=== PATIENT | male | born 1950 | race Caucasian/White ===

== ENCOUNTER 2016-10-25 13:19 | Emergency (ER) | payer OTHER ==
[~2016-10-25] VITALS: Ht 167.6 cm; Wt 77.5 kg
[2016-10-25 13:24] VITALS: Ht 167.6 cm; Wt 77.5 kg
--- NOTE | 2016-10-25 14:19 | ERD ---
ER Documentation Chief Complaint Date/Time DATE: 10/25/16 TIME: 14:18 Chief Complaint COUGH , SORETHROAT X3 DAYS , FEVER HPI This is a 66-year-old male presents emergency department today complaining of cough, fever, sore throat and chills for the past 5 days. States he thinks the fevers are intermittent. States he is taking Tylenol. Denies any vomiting or diarrhea. ROS All systems reviewed and are negative except as per history of present illness. Medications Home Meds Active Scripts Electrolyte,Oral (Pedialyte) 1,000 Ml Solution, 100 ML PO Q6 Y for FEVER, #1000 ML Prov:JOSE MEDRANO PA-C 10/25/16 Acetaminophen* (Tylophen*) 500 Mg Capsule, 1 CAP PO Q6H Y for PAIN AND OR ELEVATED TEMP, #30 CAP Prov:JOSE MEDRANO PA-C 10/25/16 Ibuprofen* (Motrin*) 600 Mg Tab, 600 MG PO Q6, #30 TAB Prov:JOSE MEDRANO PA-C 10/25/16 Guaifenesin-Dextromethorphan* (Robitussin* DM) 100MG/10MG/5ML Syrup, 10 ML PO Q6H Y for COUGH for 7 Days, ML Prov:JOSE MEDRANO PA-C 10/25/16 Physical Exam Vitals Vital Signs Date Time Temp Pulse Resp B/P Pulse Ox O2 Delivery O2 Flow Rate FiO2 10/25/16 13:24 99.3 80 20 134/63 96 Physical Exam Const: NAD Head: Atraumatic Eyes: Normal Conjunctiva ENT: Ears TMs normal. Nose no drainage. Throat erythema or exudate no vesicles Neck: Full range of motion..~ No meningismus. Resp: Coarse breath sounds right-sided lung kendall. No absent breath sounds. Cardio: Regular rate and rhythm, no murmurs Abd: Soft, non tender, non distended. Normal bowel sounds Skin: No petechiae or rashes Back: No midline or flank tenderness Ext: No cyanosis, or edema Neur: Awake and alert Psych: Normal Mood and Affect Results 24 hrs DIAGNOSTIC IMAGING REPORT Patient: BRENNEN VELASCOANCISCOJR : 1950 Age: 66 Sex: M MR #: [id number] DOS: 10/25/16 0000 Ordering MD: JOSE MEDRANO PA-C [facility] Room/Bed: PROCEDURE: XR Chest. CLINICAL INDICATION: Intermittent cough and fever for 1 week. TECHNIQUE: Single frontal chest x-ray. COMPARISON: None available FINDINGS: The lungs are clear. No focal opacification is seen. No pneumothorax or pleural effusion is seen. The cardiac silhouette is prominent. Otherwise, the cardiomediastinal silhouette is unremarkable. The osseous structures are grossly unremarkable. IMPRESSION: 1. No evidence of acute cardiopulmonary disease. 2. Prominent cardiac silhouette. RPTAT: QQ .Keyshawn Conde MD, MD Date Time Electronically viewed and signed by .Keyshawn Conde MD, MD on 10/25/2016 15:18 .A/ CC: JOSE MEDRANO PA-C RUN DATE: 10/25/16 [facility] PAGE 1 RUN TIME: [id number] [place] [address] Conrado Wilkins M.D. Associate Program Manager SHARLENE#: [id number] Name: VELASCOLEI Age/Sex: 66/M Attend Dr: ALONDRA PROCTOR DO Acct: [id number] MR# : [id number] : 1950 [facility] Admit: 10/25/16 Specimen: [id number] Status: Complete Lemuel: 10/25/16-1450 Rcvd: 10/25-1503 Source: [place] [facility] Descrip: Procedure Result Microbiology INFLUENZA A & B BY EIA Final INFLU A&B BY EIA INFLUENZA A POSITIVE (Ref Range Neg) INFLUENZA B NEGATIVE (Ref Range Neg) Phoned to [facility] 10/25/16 1534 GG ................................................................................ ............ Flags: Critical Hi = *H Critical Lo = *L Microbiology Abnormal = * Abnormal Hi = H Abnormal Lo = L Blood Bank Abnormal = * Susceptability Flags: S = Sensitive R = Resistant I = Intermediate END OF REPORT Procedures/MDM This is a 66-year-old male who presents to the emergency department today complaining of flulike symptoms for the past 5 days. Patient did have some coarse breath sounds on physical exam therefore did obtain a chest x-ray and influenza swab. He is afebrile here in the emergency department. His oxygen saturation is 96%. Do not feel that he requires further laboratory workup Chest x-rayShows no evidence of acute cardiopulmonary disease. There is no focal opacification, pneumothorax or pleural effusion. Low suspicion for pneumonia, PE, abscess, pleural effusion. influenza a and B Is positive for influenza A Patient symptoms at this time most consistent with influenza. I do not feel the patient would benefit from Tamiflu at this time given that the patient has had symptoms for 5 days. He did not report any comorbidities. He is in no acute distress and is afebrile at this time. I have explained to the patient that this is a virus and supportive measures are best for the patient at this time. Patient was given a prescription for Tylenol, Motrin, Pedialyte, Robitussin. At this time the patient is stable for discharge and outpatient management. Patient should follow up with their PCP in the next 1-2 days. They may return to the emergency department sooner for any persistent or worsening of symptoms. Patient and understood and agreed with the plan. Discussed the patient with Dr. Amaya and he is in agreement with the plan. Departure Diagnosis: Primary Impression: Influenza Condition: JOSE Connell PA-C Oct 25, 2016 14:19
--- NOTE | 2016-10-25 15:19 | RADRPT ---
PROCEDURE: XR Chest. CLINICAL INDICATION: Intermittent cough and fever for 1 week. TECHNIQUE: Single frontal chest x-ray. COMPARISON: None available FINDINGS: The lungs are clear. No focal opacification is seen. No pneumothorax or pleural effusion is seen. The cardiac silhouette is prominent. Otherwise, the cardiomediastinal silhouette is unremarkable. The osseous structures are grossly unremarkable. IMPRESSION: 1. No evidence of acute cardiopulmonary disease. 2. Prominent cardiac silhouette. RPTAT: QQ .Keyshawn Conde MD, MD Date Time Electronically viewed and signed by .Keyshawn Conde MD, on 10/25/2016 15:18 .A/
[2016-10-25] MEDS ORDERED: UDROBDM PO (16:01)
[2016-10-25] MEDS ORDERED: ACET500C5 PO (16:02)
[2016-10-25] MEDS ORDERED: ELEC100080 PO (16:02)
[2016-10-25] MEDS ORDERED: IBUP-1542 PO (16:02)
== END 2016-10-25 16:51 | disposition home or self-care (01) ==
LOC: FTE 13:19
DX: J10.1 Influenza due to other identified influenza virus with other respiratory manifestations (principal)
CPT/HCPCS: 71010; 87400; Z7502

== ENCOUNTER 2016-10-31 01:05 | Emergency (ER) | payer OTHER ==
[~2016-10-31] VITALS: Ht 172.7 cm; Wt 78.0 kg
[~2016-10-31 01:05] MED LIST: ACET500C5 PO; ELEC100080 PO; IBUP-1542 PO; UDROBDM PO
[2016-10-31 01:07] VITALS: Ht 172.7 cm; Wt 78.0 kg
--- NOTE | 2016-10-31 02:00 | ERA ---
ER Documentation Chief Complaint Date/Time DATE: 10/31/16 TIME: 01:51 Chief Complaint c/o cough, phlegm, SB x 2 wks. Seen on Sat for same. HPI This is a 6-year-old male returning to the emergency department with a chief complaint of cough. Patient was evaluated 1 week ago and diagnosed with influenza. Patient has not seen PCP. Patient states that the cough is persistent and his difficulty sleeping secondary to the cough. Also, was a general malaise. No other complaints and describes no other associated manifestations. Previous diagnosis of been reviewed and are consistent with a history given. ROS All systems reviewed and are negative except as per history of present illness. Medications Home Meds Active Scripts Benzonatate* (Tessalon Perle*) 100 Mg Capsule, 100 MG PO Q8H Y for COUGH for 3 Days, CAP Prov:BIA CLARK PA-C 10/31/16 Electrolyte,Oral (Pedialyte) 1,000 Ml Solution, 100 ML PO Q6 Y for FEVER, #1000 ML Prov:JOSE MEDRANO PA-C 10/25/16 Acetaminophen* (Tylophen*) 500 Mg Capsule, 1 CAP PO Q6H Y for PAIN AND OR ELEVATED TEMP, #30 CAP Prov:JOSE MEDRANO PA-C 10/25/16 Ibuprofen* (Motrin*) 600 Mg Tab, 600 MG PO Q6, #30 TAB Prov:JOSE MEDRANO PA-C 10/25/16 Guaifenesin-Dextromethorphan* (Robitussin* DM) 100MG/10MG/5ML Syrup, 10 ML PO Q6H Y for COUGH for 7 Days, ML Prov:JOSE MEDRANO PA-C 10/25/16 Allergies Allergies: Coded Allergies: No Known Allergy (Unverified , 10/31/16) PMhx/Soc History of Surgery: No Anesthesia Reaction: No Hx Neurological Disorder: No Hx Respiratory Disorders: No Hx Cardiac Disorders: Yes (HTN, high cholesterol ) Hx Psychiatric Problems: No Hx Miscellaneous Medical Probl: No Hx Alcohol Use: No Hx Substance Use: No Hx Tobacco Use: Yes (quit 20 yrs ago) Smoking Status: Former smoker Physical Exam Vitals Vital Signs Date Time Temp Pulse Resp B/P Pulse Ox O2 Delivery O2 Flow Rate FiO2 10/31/16 01:07 97.7 80 18 192/88 97 Physical Exam Const: Well-appearing 66-year-old male in no acute distress Head: Atraumatic Eyes: Normal Conjunctiva ENT: Normal External Ears, Nose and Mouth. Neck: Full range of motion..~ No meningismus. Resp: Rhonchi in the upper lobes bilaterally Cardio: Regular rate and rhythm, no murmurs Abd: Soft, non tender, non distended. Normal bowel sounds Skin: No petechiae or rashes Back: No midline or flank tenderness Ext: No cyanosis, or edema Neur: Awake and alert Psych: Normal Mood and Affect Procedures/MDM Well-appearing 66-year-old male presenting with a chief complaint of cough. Was evaluated in the emergency department one week ago and diagnosed with influenza. Physical examination today really reveals new bilateral rhonchi in the upper lobes. Chest x-ray was obtained, read by the radiologist, given the following impression: Unremarkable At this time I will suspicion for pneumonia, ACS, pneumothorax, hemothorax, or other obstructive pulmonary pathologies. Most likely diagnosis is bronchitis versus post influenza pneumonia. Antibiotics and anti-viral therapy is not indicated at this time due to duration. Patient has been recommended to follow- up with PCP in the next 1-3 days for further evaluation possible infertility specialist. Patient's vital signs are stable on his current condition is appropriate for discharge. I spoke to the patient about his current status and he has verbally acknowledged he understands and agrees to the plan of management. Will be given discharge instructions return precautions. Departure Diagnosis: Primary Impression: Cough Condition: Stable Additional Instructions: Follow up with your PCP within the next 1-3 days for a more thorough evaluation and a possible referral to a specialist. Return the the emergency department immediately if symptoms worsen or change. If you have any questions regarding medications, ask your pharmacist or us before you leave. If any adverse reactions occur while taking your medications, discontinue the treatment and return to the emergency department immediately. Take your medications as directed, and complete the entire course of treatment. BIA CLARK PA-C Oct 31, 2016 01:59
--- NOTE | 2016-10-31 03:32 | RADRPT ---
PROCEDURE: XR Chest. CLINICAL INDICATION: cough. TECHNIQUE: Portable single view of the chest COMPARISON: None. FINDINGS: The heart size appears within normal limits. No acute infiltrate, pleural effusion, or overt congest rey heart failure is seen. No bony abnormality is seen. IMPRESSION: No definite acute pulmonary disease. RPTAT: HLBE Catherine Babcock Physician Date Time Electronically viewed and signed by Catherine Babcock, Physician on 10/31/2016 03:32 LE/
[2016-10-31] MEDS ORDERED: BENZ100C70 PO (03:42)
== END 2016-10-31 04:30 | disposition home or self-care (01) ==
LOC: FTE 01:05
DX: R05 Cough (principal); I10 Essential (primary) hypertension; Z87.891 Personal history of nicotine dependence
CPT/HCPCS: 71010; Z7502